=== PATIENT | female | born 1940 | race Caucasian/White ===

== ENCOUNTER 2017-11-12 20:48 | Emergency (ER) | payer MEDICARE, OTHER | END 2017-11-13 00:22 | disposition home or self-care (01) | LOC: FTE 11-13 00:22 → E/R 20:48 | DX: S13.4XXA Sprain of ligaments of cervical spine, initial encounter (principal); S29.9XXA Unspecified injury of thorax, initial encounter; R51 Headache; R07.9 Chest pain, unspecified; V89.2XXA Person injured in unspecified motor-vehicle accident, traffic, initial encounter | CPT/HCPCS: 70450; 71046; 72125; 99285-25 ==